=== PATIENT | male | born 1995 | race Caucasian/White ===

== ENCOUNTER 2017-07-28 07:08 | Inpatient (IN) | payer MEDICAID ==
[~2017-07-28] VITALS: Ht 170.2 cm; Wt 63.5 kg
[2017-07-28] MEDS: LACTATED RINGERS 1,000 ML IV SCH ×2 (09:30→09:37)
[2017-07-28] MEDS ORDERED: EPINEPHRINE 1:1000 1 MG/ML AMP ONE (09:41)
[2017-07-28] MEDS ORDERED: MORPHINE SULFATE/PF 1MG/ML 10ML AMP ONE (09:41)
[2017-07-28] MEDS ORDERED: BUPIVACAINE/EPINEPHRINE/PF 0.25%/0.0005 30ML ONE (09:41)
[2017-07-28] MEDS ORDERED: FENTANYL CITRATE/PF 50MCG/ML 2ML VIAL ONE ×2 (12:17→13:16)
[2017-07-28] MEDS ORDERED: MIDAZOLAM HCL 2 MG/2 ML VIAL ONE (12:18)
[2017-07-28] MEDS ORDERED: LABETALOL HCL 20MG/4ML CARPUJECT IV PRN (12:45)
[2017-07-28] MEDS ORDERED: MEPERIDINE HCL/PF 25MG/ML CPJ IV PRN (12:45)
[2017-07-28] MEDS ORDERED: ONDANSETRON HCL 4MG/2ML VIAL IV PRN ×2 (12:45→16:45)
[2017-07-28] MEDS ORDERED: LIDOCAINE HCL/PF 1% 10 MG/ML 5ML VIAL ONE (16:15)
[2017-07-28] MEDS ORDERED: PROPOFOL 200MG/20ML VIAL IV ONE (16:15)
[2017-07-28] MEDS ORDERED: SODIUM CHLORIDE 0.9% 10ML VIAL ONE (16:15)
[2017-07-28] MEDS ORDERED: DEXAMETHASONE 4MG/ML 1ML VIAL ONE (16:15)
[2017-07-28] MEDS ORDERED: CEFAZOLIN SODIUM 1000MG/VIAL ONE (16:15)
[2017-07-28] MEDS ORDERED: ONDANSETRON HCL 4MG/2ML VIAL ONE (16:16)
[2017-07-28] MEDS ORDERED: KETOROLAC 30MG/ML VIAL IV PRN (16:45)
[2017-07-28] MEDS ORDERED: HYDROCODONE/ACETAMINOPHEN 5/325MG TABLET PO PRN (16:45)
[2017-07-28] MEDS ORDERED: MORPHINE SULFATE 10 MG/ML CPJ IV PRN (16:45)
[2017-07-28] MEDS ORDERED: ACETAMINOPHEN 325MG TABLET PO PRN (16:45)
[2017-07-28] MEDS: HYDROMORPHONE HCL/PF 2MG/ML CPJ IV PRN ×2 (16:48→16:55)
[2017-07-28 20:00] VITALS: BP 111/65
[2017-07-28] MEDS: CEFAZOLIN 1000MG PREMIX 50 ML IV SCH (20:44)
[2017-07-29] VITALS: BP 115/58
[2017-07-29] MEDS: MORPHINE SULFATE 2 MG/ML CPJ (NOT FOR IM USE) IV PRN ×2 (03:03→08:54)
[2017-07-29 04:00] VITALS: BP 106/61
[2017-07-29] MEDS: CEFAZOLIN 1000MG PREMIX 50 ML IV SCH (05:34)
[2017-07-29] MEDS: HYDROCODONE/ACETAMINOPHEN 5/325MG TABLET PO PRN ×2 (05:46→12:13)
[2017-07-29 08:15] VITALS: BP 109/49
[2017-07-29 09:37] VITALS: BP_SYST 113; BP_SYST 116; BP_DIAS 61; BP_DIAS 63
[2017-07-29 12:00] VITALS: BP 136/78
[2017-07-29 12:13] VITALS: BP 116/61
== END 2017-07-29 12:45 | disposition home or self-care (01) | DRG 313 ==
LOC: OR 07:08 → 6EST 18:30
PROVIDERS: ADMIT Orthopaedic Surgery; ATTEND Orthopaedic Surgery
PROC: 0MRN47Z Replacement of Right Knee Bursa and Ligament with Autologous Tissue Substitute, Percutaneous Endoscopic Approach (ICD-10-PCS; 2017-07-28)
PROC: 0SBC4ZZ Excision of Right Knee Joint, Percutaneous Endoscopic Approach (ICD-10-PCS; principal; 2017-07-28 12:30)
DX: S83.511A Sprain of anterior cruciate ligament of right knee, initial encounter (principal); M25.00 Hemarthrosis, unspecified joint; M23.91 Unspecified internal derangement of right knee; M65.9 Synovitis and tenosynovitis, unspecified; X58.XXXA Exposure to other specified factors, initial encounter; Y93.89 Activity, other specified; Y92.89 Other specified places as the place of occurrence of the external cause; Y99.8 Other external cause status; S83.281A Other tear of lateral meniscus, current injury, right knee, initial encounter
CPT/HCPCS: 88304; 88311; 97162; 97535; A4216; J0171; J0690; J1100; J1170; J1885; J2250; J2270; J2274; J2405; J2704; J3010; J3490; J7030; J7040; J7120; L1830

== ENCOUNTER 2020-04-24 22:15 | Emergency (ER) | payer MEDICAID ==
[~2020-04-24] VITALS: Ht 172.7 cm; Wt 66.0 kg
[2020-04-24 22:19] VITALS: BP 125/57
[2020-04-24] MEDS ORDERED: ACETAMINOPHEN WITH CODEINE 300/30MG TABLET PO STA (23:05)
== END 2020-04-25 00:41 | disposition home or self-care (01) ==
LOC: ER 22:15
DX: S82.002A Unspecified fracture of left patella, initial encounter for closed fracture (principal); Z98.890 Other specified postprocedural states; W18.30XA Fall on same level, unspecified, initial encounter; Y93.89 Activity, other specified; Y92.89 Other specified places as the place of occurrence of the external cause; Y99.8 Other external cause status
CPT/HCPCS: 73562; 99283; L1830